=== PATIENT | male | born 1960 | race Caucasian/White ===

== ENCOUNTER 2018-07-16 18:07 | Emergency (ER) | payer OTHER ==
[2018-07-16] MEDS ORDERED: Sodium Chloride 0.9% 10 ML Syringe FLUSH PRN (18:10)
[2018-07-16] MEDS ORDERED: Sodium Chloride 0.9% 1,000 ML IV ONE (18:12)
[2018-07-16] MEDS ORDERED: HYDROmorphone 0.5 MG/0.5 ML Syringe IVPUSH ONE (18:13)
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
[2018-07-16] MEDS ORDERED: Sodium Chloride 0.9% 80 ML IV ONE (18:26)
[2018-07-16] MEDS ORDERED: Sodium Chloride 0.9% 10 ML Syringe FLUSH ONE (18:26)
[2018-07-16] MEDS ORDERED: Iopamidol 612 MG/ML 100 ML Bottle IV SCH (18:30)
[2018-07-16] MEDS ORDERED: Ondansetron 4 MG/2 ML SDV IVPUSH ONE (19:19)
[2018-07-16] MEDS ORDERED: diphenhydrAMINE 50 MG/ML SDV IVPUSH ONE (19:23)
--- NOTE | 2018-07-16 20:06 | CRLCT ---
Indication: Fall. Technique: Multiple contiguous axial images were obtained from the thoracic inlet to the symphysis pubis after the intravenous administration of 100 cc Isovue-300. Please note that all CT scans at this facility use dose modulation, iterative reconstruction, and/or weight-based dosing when appropriate to reduce radiation dose to as low as reasonably achievable. Comparison: None Findings: Aorta is normal in caliber. The heart is normal in size. No pericardial effusions identified. No aortic dissection is seen. No mediastinal, hilar, or axillary lymphadenopathy is identified. Calcified lymph nodes are identified in the right hilum. The lungs are clear. No infiltrate, pleural effusion, or pneumothorax is identified. Calcified granulomas are identified in the right lower lobe. The liver, gallbladder, adrenals, spleen, pancreas, and kidneys are normal. No intrahepatic biliary ductal dilatation is identified. No hydronephrosis is seen. In the pelvis, the urinary bladder is normal. The prostate gland is normal. Prostatic calcifications are identified. The small and large bowel are normal in caliber. The appendix is seen and is normal in caliber. Sigmoid diverticulosis is identified. There is no evidence of diverticulitis. No free air or free fluid is identified within the abdomen or pelvis. Both femoral heads are seated within the acetabula. No definite pelvic fractures are identified. Degenerative changes of the spine are identified. Vacuum disc phenomenon is identified at all levels within the lumbar spine. Osteophytes are identified at all lumbar vertebral levels. No fracture is identified. Both humeral heads are seated within the glenoid. A fracture of the eleventh rib is identified laterally on the right. No left rib fractures are identified. In the right lateral soft tissues, a large hematoma is identified. This extends from approximately the 11th rib to the level of the ileum. This measures approximately 8.7 x 5.6 x 13.0 cm in size. Impression: Large soft tissue hematoma identified along the right flank. Right lateral 11th rib fracture. Degenerative changes of the spine, particularly the lumbar spine. No acute injury of the visceral organs of the chest, abdomen, or pelvis. Sigmoid diverticulosis without evidence of diverticulitis. Please note that all CT scans at this facility use dose modulation, iterative reconstruction, and/or weight-based dosing when appropriate to reduce radiation dose to as low as reasonably achievable. Dictated by Kady Barnett MD @ Jul 16 2018 7:52PM Signed by Dr. Kady Barnett @ Jul 16 2018 8:03PM
[2018-07-16] MEDS ORDERED: Sodium Chloride 0.9% 1,000 ML IV SCH (21:00)
== END 2018-07-16 22:22 ==
LOC: JP.ED 18:07
DX: S22.31XA Fracture of one rib, right side, initial encounter for closed fracture (principal); S30.1XXA Contusion of abdominal wall, initial encounter; V86.56XA Driver of dirt bike or motor/cross bike injured in nontraffic accident, initial encounter
CPT/HCPCS: 36415; 71260; 74177; 80053; 81001; 85025; 85610; 85730; 86850; 86900; 86901; 93005; 96361; 96374; 96375; 99285; J1200; J2405; J7030; Q9967